=== PATIENT | male | born 1935 | race Caucasian/White ===

== ENCOUNTER → 2017-07-22 | Outpatient (CLI) | payer OTHER ==
[~2017-07-22] MED LIST: ASPI-1181 PO; CALC-1009 PO; CHOL200074 PO; DOXA4TAB3 PO; FISH1CAP50 PO; FURO40TA5 PO; GABA-529 PO; GELA650C4 PO; IMMUNE SUPPORT PO; INSLAN SQ; MAGN400T40 PO; METF10004 PO; METO200T49 PO; MVIT PO; PYRI100T2 PO; UBID1CAP55 PO; WARF-57 PO
== END | disposition home or self-care (01) ==
LOC: OIH 13:38
PROVIDERS: ATTEND Family Medicine
DX: I10 Essential (primary) hypertension (principal); M47.894 Other spondylosis, thoracic region; Z95.0 Presence of cardiac pacemaker
CPT/HCPCS: 71046

== ENCOUNTER → 2019-08-11 | Outpatient (CLI) | payer OTHER ==
[~2019-08-11] MED LIST changes: +METF-446 PO; -METF10004 PO; +PYRI100T10 PO; -PYRI100T2 PO
== END | disposition home or self-care (01) ==
LOC: SHCH 15:02
PROVIDERS: ATTEND Internal Medicine Cardiovascular Disease
DX: I73.9 Peripheral vascular disease, unspecified (principal)
CPT/HCPCS: 93925